=== PATIENT | female | born 1960 | race Caucasian/White ===

== ENCOUNTER 2020-07-20 05:20 | Emergency (ER) | payer OTHER ==
[~2020-07-20] VITALS: Ht 172.7 cm; Wt 75.3 kg
[2020-07-20 05:24] VITALS: BP_SYST 135
--- NOTE | 2020-07-20 05:24 | NUR ---
Patient to ER bed 4 to gown for evaluation. Side rails up. Report given to Kevin MORA.
--- NOTE | 2020-07-20 05:24 | NUR ---
Dr. Rodrigues bedside for pt eval
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
[2020-07-20] MEDS ORDERED: KETOROLAC TROMETHAMINE 30 MG VIAL IVP ONE (05:45)
--- NOTE | 2020-07-20 06:48 | NUR ---
PT TAKEN TO RADIOLOGY IN STABLE CONDITION
[2020-07-20] MEDS ORDERED: KETOROLAC TROMETHAMINE 60 MG/2 ML VIAL IM ONE (07:00)
--- NOTE | 2020-07-20 07:16 | NUR ---
REPORT FROM PREETHI MORA
--- NOTE | 2020-07-20 07:35 | NUR ---
Patient resting in [facility].
--- NOTE | 2020-07-20 09:35 | NUR ---
Patient A&Ox4, sitting up in [facility], responding verbally.
[2020-07-20 10:00] VITALS: BP_SYST 135
--- NOTE | 2020-07-20 10:00 | NUR ---
Patient given written and verbal discharge instructions and verbalizes understanding. ER MD discussed with patient the results and treatment provided. Patient in stable condition. ID arm band removed. Rx of NAPROXEN given. Patient educated on pain management and to follow up with PMD. Pain Scale 3/10. Opportunity for questions provided and answered. Medication side effect fact sheet provided.
== END 2020-07-20 10:00 | disposition home or self-care (01) ==
LOC: SED 05:20
DX: S09.90XA Unspecified injury of head, initial encounter (principal); W22.8XXA Striking against or struck by other objects, initial encounter; Y93.89 Activity, other specified; Y92.59 Other trade areas as the place of occurrence of the external cause; Y99.8 Other external cause status
CPT/HCPCS: 70450-TC; 76376; 96372; 99284